=== PATIENT | male | born 1960 | race Caucasian/White ===

== ENCOUNTER → 2018-09-20 | Outpatient (CLI) | payer OTHER ==
--- NOTE | 2018-09-20 15:27 | EXE ---
[place] [address] STRESS ECHOCARDIOGRAM Name: JERI LATHAM Room: [facility]#: [id number] Admission: 09/20/18 Attend Phys: Anam Carter, Discharge: Date of : 60 Date of Service: 09/20/18 1527 Report #: [id number] THIS REPORT FOR: //name// APPROVED REPORT Study performed: 09/20/2018 11:47:57 Exam: Stress Echocardiogram Indication: Palpitations Patient Location: Out-Patient Stress Nurse: Lynette Perkins RN Supervising Physician: Ayush Tejada MD Ht: 5 ft 11 in HR: 90 bpm BP: 133/82 mmHg Medical History Cardiac Risk Factors: Hyperlipidemia, HTN, FHX of CAD Procedure The patient underwent an Exercise Stress Test using the Yony Protocol. Blood pressure, heart rate, and EKG were monitored. An Echocardiogram was performed by clinical technician in four stages in quad fashion. At peak stress, four selected images were obtained and placed side by side with resting images for comparison. Stress Test Details Stress Test: Exercise stress testing was performed using a Yony protocol. HR Resting HR: 90 bpm Max Heart Rate (APMHR): 162 bpm Max HR Achieved: 150 bpm Target HR (85% APMHR): 137 bpm % of APMHR: 92 Recovery HR: 105 bpm HR response to stress: Normal HR response to stress BP Resting BP: 133/82 mmHg Max BP: 176/89 mmHg Recovery BP: 141/87 mmHg BP response to stress: Normal blood pressure response to stress. ECG Resting ECG: Sinus Rhythm Stress ECG: [place] [address] STRESS ECHOCARDIOGRAM Name: JERI LATHAM Room: [facility]#: [id number] Admission: 09/20/18 Attend Phys: Anam Carter, Discharge: Date of : 60 Date of Service: 09/20/18 1527 Report #: [id number] ST Change: Normal Maximum ST Deviation: 0 mm Arrhythmia: None Recovery ECG: Sinus Rhythm Recovery ST Change: Normal Recovery ST Deviation: 0 mm Recovery Arrhythmia: None Clinical Reason for Termination: Completed protocol Exercise duration: 6 min 59 sec Highest Stage Achieved: Stage 3: 3.4 mph at 14% grade. Exercise capacity: 8.51 METs Pre-Stress Echo The resting Echocardiogram showed normal left ventricular contractility with an estimated Ejection Fraction of about 55-60%. Post-Stress Echo The stress Echocardiogram showed normal left ventricular contractility with an estimated Ejection Fraction of about 65-70%. Conclusion Clinical Response: Non-ischemic Exercise Capacity: Below Average Stress ECG Response: Non-ischemic Stress Echo Images: Non-ischemic low risk stress echo for future cardiac events Other Information Study Quality: Good <Conclusion> low risk stress echo for future cardiac events <ELECTRONICALLY SIGNED> By: Ayush Tejada MD, FACC 09/20/18 1527 1527 152 Ayush Tejada MD, FACC /INF
== END ==
LOC: M.CRD 09-15 11:00
DX: R00.2 Palpitations (principal)

== ENCOUNTER 2018-11-04 10:32 | Emergency (ER) | payer BC ==
[~2018-11-04] VITALS: Ht 180.3 cm; Wt 83.9 kg
[2018-11-04] MEDS ORDERED: COZAAR 25 MG TA25 M1 PO (10:42)
[2018-11-04] MEDS ORDERED: LIPITOR10 MG PO (10:43)
[2018-11-04 11:18] LABS: ABSOLUTE BASOPHILS 0.1 thou/uL (0.0-0.2); ABSOLUTE LYMPHOCYTES 1.8 thou/uL (0.8-5.3); ABSOLUTE MONOCYTES 0.9 thou/uL (0.0-1.2); ABSOLUTE NEUTROPHILS 6.7 thou/uL (1.6-8.1); BASOPHILS 0.9 %; EOSINOPHILS 0.4 %; LYMPHOCYTES 18.7 %; MCH 34.7 pg (26.0-34.0); MCHC 34.9 g/dL (28.0-37.0); MCV 99.5 fL (80.0-100.0); MONOCYTES 9.8 %; MPV 8.1 fl. (7.2-11.1); NUCLEATED RBCS 0 /100WBC; PLATELET COUNT* 92 thou/uL (150-400); POLYS 70.2 %; RBC 4.32 mil/uL (4.50-6.00); RDW-CV 12.3 % (10.5-14.5); WBC 9.6 thou/uL (4.0-11.0)
[2018-11-04 11:35] LABS: CALCIUM 9.2 mg/dL (8.5-10.1); CREATININE 1.1 mg/dL (0.6-1.3); POTASSIUM 3.7 mmol/L (3.5-5.1)
[2018-11-04 11:37] LABS: ALBUMIN 3.6 g/dL (3.4-5.0); TOTAL BILIRUBIN 1.9 mg/dL (<0.1-1.0); TOTAL PROTEIN 8.5 g/dL (6.4-8.2)
[2018-11-04 12:33] LABS: URINE BILIRUBIN NEGATIVE (Negative); URINE BLOOD NEGATIVE (Negative); URINE CLARITY CLEAR; URINE COLOR YELLOW; URINE GLUCOSE-RANDOM NEGATIVE (Negative); URINE KETONES NEGATIVE (Negative); URINE LEUKOCYTES-REFLEX NEGATIVE (Negative); URINE NITRITE-REFLEX NEGATIVE (Negative); URINE PROTEIN NEGATIVE (Negative); URINE SPECIFIC GRAVITY <= 1.005 (1.005-1.030); URINE UROBILINOGEN 0.2 E.U./dl (0.2-1.0)
[2018-11-04] MEDS ORDERED: NORCO 5-325 TA1 EACH PO (14:24)
[2018-11-04] MEDS ORDERED: ONDANSETRON HCL4 M2 PO (14:24)
[2018-11-04 14:36] VITALS: BP 127/86
--- NOTE | 2018-11-05 10:22 | EKG ---
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
== END 2018-11-04 14:37 | disposition home or self-care (01) ==
LOC: M.ERS 10:32
PROVIDERS: Physician Assistant
DX: K70.30 Alcoholic cirrhosis of liver without ascites (principal); R94.5 Abnormal results of liver function studies; I10 Essential (primary) hypertension; E78.5 Hyperlipidemia, unspecified; F17.210 Nicotine dependence, cigarettes, uncomplicated; Z88.5 Allergy status to narcotic agent